=== PATIENT | female | born 1970 | race Caucasian/White ===

== ENCOUNTER 2017-06-08 23:20 | Emergency (ER) | payer OTHER ==
[2017-06-08 23:53] LABS: BASO # 0.1 x10^3/uL (0.0-0.2); BASO % 0 % (0-3); EOS % 0 % (0-3); HEMATOCRIT 28.5 % (36.0-47.0); HEMOGLOBIN 9.7 g/dL (12.0-15.5); LYMPH # 1.9 x10^3/uL (1.0-4.8); LYMPH % 15 % (24-48); MEAN CORPUSCULAR HEMOGLOBIN 33 pg (25-35); MEAN CORPUSCULAR HGB CONC 34 g/dL (31-37); MEAN CORPUSCULAR VOLUME 98 fL (79-100); MONO # 0.5 x10^3/uL (0.0-1.1); MONO % 4 % (0-9); NEUT % 80 % (31-73); PLATELET COUNT 438 x10^3/uL (140-400); RED BLOOD COUNT 2.91 x10^6/uL (3.50-5.40); RED CELL DISTRIBUTION WIDTH 17.5 % (11.5-14.5); WHITE BLOOD COUNT 12.5 x10^3/uL (4.0-11.0)
[2017-06-08 23:54] LABS: ADD MAN DIFF? YES
[2017-06-08 23:57] LABS: ANION GAP 12 (6-14); BLOOD UREA NITROGEN 28 mg/dL (7-20); BUN/CREATININE RATIO 23 (6-20); CALCIUM 8.4 mg/dL (8.5-10.1); CARBON DIOXIDE 27 mmol/L (21-32); CHLORIDE 102 mmol/L (98-107); CREATININE 1.2 mg/dL (0.6-1.0); GFR 48.4; GLUCOSE 161 mg/dL (70-99); POTASSIUM 4.1 mmol/L (3.5-5.1); SODIUM 141 mmol/L (136-145)
[2017-06-09] MEDS: IV NORMAL SALINE 500ML BAG 500 ML IV (00:02)
[2017-06-09] MEDS: DEXAMETHASONE SOD PHOS 20 MG/5 ML VIAL. IV (00:02)
[2017-06-09] MEDS: levETIRAcetam 1,000 MG in IV DEXTROSE 5% 100 ML IV (00:02)
[2017-06-09 00:03] LABS: ALBUMIN 2.3 g/dL (3.4-5.0); ALBUMIN/GLOBULIN RATIO 0.5 (1.0-1.7); ALK PHOS 102 U/L (46-116); ALT (SGPT) 43 U/L (14-59); AST (SGOT) 24 U/L (15-37); TOTAL BILIRUBIN 0.3 mg/dL (0.2-1.0)
[2017-06-09 00:27] LABS: % BANDS 2 % (0-9); % LYMPHS 13 % (24-48); % METAS 1 % (0-0); % MONOS 3 % (0-10); % MYELOS 1 % (0-0); % SEGS 80 % (35-66); ANISOCYTOSIS SLIGHT; HYPOCHROMIA SLIGHT; PLT ESTIMATE ADEQUATE (ADEQUATE); POIKILOCYTOSIS SLIGHT; POLYCHROMASIA SLIGHT; TOXIC GRANULATION SLIGHT
== END 2017-06-09 02:40 | disposition short-term general hospital (02) ==
LOC: ER 23:20
DX: R56.9 Unspecified convulsions (principal); J18.9 Pneumonia, unspecified organism; Z85.118 Personal history of other malignant neoplasm of bronchus and lung; C79.31 Secondary malignant neoplasm of brain; Z92.21 Personal history of antineoplastic chemotherapy
CPT/HCPCS: 36415; 70450; 80053; 85007; 85025; 96365; 96366; 96375; 99285-25; J1100; J1953; J7040